=== PATIENT | male | born 1975 | race Caucasian/White ===

== ENCOUNTER 2023-06-24 08:40 | Emergency (ER) | payer MEDICAID ==
[~2023-06-24] VITALS: Ht 180.3 cm; Wt 100.0 kg
[2023-06-24 08:44] VITALS: TEMP 98.3; O2SAT 100
[2023-06-24] MEDS ORDERED: HYDROCODONE/ACETAMINOPHEN 5/325MG TABLET PO ONE (09:15)
[2023-06-24] MEDS ORDERED: IBUP-2029 MT (10:52)
[2023-06-24 11:01] VITALS: BP 138/90; PULSE 88; RESP 15
== END 2023-06-24 11:05 | disposition home or self-care (01) ==
LOC: ER 08:40
DX: S70.02XA Contusion of left hip, initial encounter (principal); Z86.73 Personal history of transient ischemic attack (TIA), and cerebral infarction without residual deficits; W18.39XA Other fall on same level, initial encounter; Y93.89 Activity, other specified; Y92.89 Other specified places as the place of occurrence of the external cause; Y99.8 Other external cause status
CPT/HCPCS: 72170; 72192; 73700; 99284

== ENCOUNTER 2023-07-11 15:07 | Emergency (ER) | payer BC, MEDICAID ==
[~2023-07-11] VITALS: Ht 167.6 cm; Wt 78.0 kg
[~2023-07-11 15:07] MED LIST: IBUP-2029 MT
[2023-07-11 15:16] VITALS: TEMP 98.4; O2SAT 96
[2023-07-11] MEDS ORDERED: HYDROCODONE/ACETAMINOPHEN 5/325MG TABLET PO PRN (15:30)
[2023-07-11] MEDS ORDERED: KETOROLAC 60MG/2ML VIAL IM ONE (15:30)
[2023-07-11] MEDS ORDERED: CYCLOBENZAPRINE 10MG TABLET PO NR (19:00)
[2023-07-11] MEDS ORDERED: HYDROCODONE/ACETAMINOPHEN 5/325MG TABLET PO NR (19:00)
[2023-07-11] MEDS ORDERED: TRAM50TA3 MT (19:09)
[2023-07-11 19:23] VITALS: BP 145/90; PULSE 98; RESP 16
== END 2023-07-11 20:25 | disposition home or self-care (01) ==
LOC: ER 15:07
DX: M54.50 Low back pain, unspecified (principal); R51.9 Headache, unspecified; Z86.73 Personal history of transient ischemic attack (TIA), and cerebral infarction without residual deficits
CPT/HCPCS: 72110; 70450; 96372; 99285; J1885; Z7610